=== PATIENT | female | born 1965 | race Caucasian/White ===

== ENCOUNTER → 2019-02-09 13:45 | Outpatient (CLI) | payer SELFPAY ==
--- NOTE | 2019-02-09 | FLU_PTH ---
PATIENT: ISABELLA LAL LOC: [facility] U#:[id number] AGE/SX: 59/F ROOM: RE02/09/[address]: Dr. Marlen Arana MD : 1965 BED: DIS: SPEC #: [id number] RECD: 02/12/19 12:02 STATUS: JOSE YAMIL #: [id number] ALESSANDRA: 02/09/19 00:[address]: Marlen Arana DEPT: CYTOLOGY RECD BY: Lamonte Tinajero ENTERED: 02/12/19 12:03 SP TYPE: Fluid OTHR DR: Dr. Jacob Edwards MD Tissues: A - Thyroid gland, NOS B - Thyroid gland, NOS C - Neck, NOS D - Neck, NOS Procedures: Special Stain Group II Surgery Specimen Level IV Cytospin Fluid HEADER OPERATION: Ultrasound-guided fine needle aspiration left thyroid, left neck mass PRE-OP DIAGNOSIS: Thyroid nodules, left neck mass TISSUE SUBMITTED: A - FNA left thyroid fluid for cytology, B - FNA left thyroid slides x8, C - FNA left neck mass fluid for cytology, D - FNA left neck mass slides x6 DIAGNOSIS CYTOLOGY A. Left thyroid nodule fluid, ultrasound-guided FNA (cytospin and cell block): Adequate for evaluation. Consistent with benign follicular nodule with cystic changes. B. Left thyroid nodule, ultrasound-guided FNA (smears): Adequate for evaluation. 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 C. Left neck mass fluid, ultrasound-guided FNA (cytospin and cell block): Benign salivary gland tissue. See comment. D. Left neck mass, ultrasound-guided FNA (smears): Benign salivary gland tissue and polymorphous lymphocytes. See comment. AM:yaya 02/15/19 COMMENT C & D. Differential diagnosis includes intraparotid lymph node tissue, Warthin tumor, pleomorphic adenoma and chronic inflammatory process. Excision of the lesion is suggested for definite diagnosis. Correlation with clinical, radiologic findings and appropriate follow up are necessary. Case has been reviewed in consultation with Dr. Mcmanus who concurs with the above diagnosis. IDC:[facility] CYTOLOGY STUDY Slides are reviewed. CYTOLOGY GROSS A - Received is 30 ml of brown cloudy fluid labeled with the patient's name and and designated per the requisition as left thyroid. Submitted for cytology preparation including cell block. B - Received are eight smears labeled with the patient's name and designated per the requisition as left thyroid. Submitted for staining. C - Received is 30 ml of brown cloudy fluid labeled with the patient's name and and designated per the requisition as left neck mass. Submitted for cytology preparation including cell block. D - Received are six smears labeled with the patient's name and designated per the requisition as left neck mass. Submitted for staining. / yaya 02/12/19 TC:5 CPT: 68854 x2, 17827 x2, 24520 x2
== END ==
PROVIDERS: Family Provider Family Medicine; PCP Family Medicine; Referring Provider Surgery; Visit Provider Surgery
DX: E04.1 Nontoxic single thyroid nodule (principal); R22.1 Localized swelling, mass and lump, neck
CPT/HCPCS: 88108; 88305; 88313

== ENCOUNTER 2023-02-15 23:15 | Emergency (ER) | payer MEDICARE, SELFPAY ==
--- NOTE | 2023-02-15 00:53 | RAD_ITS ---
EXAM: XR CHEST, 1 VIEW CLINICAL INDICATION: Cough TECHNIQUE: Frontal view of the chest. COMPARISON: No relevant prior studies available. FINDINGS: LUNGS AND PLEURAL SPACES: Patchy multilobar bilateral groundglass opacities are concerning for pneumonia in the appropriate setting. Atelectasis versus infiltrate/aspiration at the left lower lobe obscuring a portion of the left hemidiaphragm. No cardiomegaly or hilar enlargement. No effusion. No pneumothorax. HEART: See above. MEDIASTINUM: Central airways and mediastinal contour are unremarkable. BONES/JOINTS: S-shaped curvature of the spine. No acute fracture. No suspicious lytic or sclerotic lesions of bone. SOFT TISSUES: Unremarkable. VASCULATURE: Dense atherosclerotic calcifications of the nonenlarged thoracic aortic arch. RAD/Chest 1 View (Portable) IMPRESSION: Bilateral groundglass opacities are potentially infectious. Atelectasis versus infiltrate/aspiration at the left lower lobe. Electronically Signed: Shahid Frye MD at 1:48 EST ,
[2023-02-15 23:16] VITALS: BP 63/48; PULSE 133; RESP 18; TEMP 37.2; O2SAT 100
[2023-02-15 23:30] VITALS: BP 104/76; PULSE 129; RESP 19; O2SAT 93
[2023-02-15 23:31] VITALS: BMI 17.7
--- NOTE | 2023-02-15 23:46 | EX.ED.DYSGE1 ---
HPI History of Present Illness Chief Complaint: General Illness Informant: patient Onset/Context/Timing Onset: Days (3) Context: Gradual Onset Timing: Continuous Quality: Weakness Location: Generalized Worsened by: Nothing Relieved by: Nothing Narrative Narrative: Patient presents with generalized weakness and not feeling well over the past 3 days. Patient admits to subjective fevers and chills today. Patient admits to shortness of breath and cough. Patient denies any sputum production however. Patient denies any chest pain. Patient admits to some nausea but denies any vomiting. Patient denies any dysuria or hematuria but admits to some decreased urine output. The patient also admits to having a recent intramedullary soha placed in her left femur due to radiation from metastatic lung cancer. [facility] Medical History (Updated 02/16/23 @ 04:[address] 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 Lit Stubbs DO) History of thyroid surgery Hx of eye surgery S/P ORIF (open reduction internal fixation) fracture Social History Smoking Status: Former smoker ROS ROS ED Constitutional Constitutional ED: Reports chills, fever(s) and subjective Eyes Eyes: Reports change in vision; Denies blurry vision ENT ENT ED: Denies rhinorrhea or sore throat Cardiovascular Cardiovascular: Denies chest pain or palpitations Respiratory/Chest Respiratory/Chest: Reports cough and dyspnea Gastrointestinal Gastrointestinal: Reports nausea; Denies vomiting Genitourinary Genitourinary ED: Reports other Details: Decreased urine output ; Denies dysuria or hematuria Musculoskeletal Musculoskeletal: Reports back pain; Denies neck pain Integumentary Reports rash; Denies abscess Neurologic Neurologic: Denies headache(s) or weakness Allergic/Immunologic Allergic/Immunologic ED: Denies mouth swelling or urticaria EXAM Physical Exam Const Vital Signs: 02/15/23 23:16 02/15/23 23:30 02/15/23 23:32 Temperature 98.9 F Temperature Source Temporal Pulse Rate 133 H 129 H Respiratory Rate 18 19 H Respiratory Effort Normal Non-Labored Respiratory Pattern Normal Blood Pressure 63/48 L 104/76 Blood Pressure Mean 53 85 Pulse Ox 100 93 Oxygen Delivery Method Room Air 02/16/23 00:00 02/16/23 01:20 02/16/23 02:00 Temperature Temperature Source Pulse Rate 105 H Respiratory Rate 17 Respiratory Effort Respiratory Pattern Blood Pressure 82/57 L 101/74 Blood Pressure Mean 65 83 Pulse Ox 93 96 Oxygen Delivery Method Room Air Room Air 02/16/23 02:15 02/16/23 03:00 02/16/23 04:00 Temperature 98 F Temperature Source Oral Pulse Rate 107 H 109 H 106 H Respiratory Rate 20 H 19 H 18 Respiratory Effort Respiratory Pattern Blood Pressure 99/74 117/75 108/74 Blood Pressure Mean 82 89 85 Pulse Ox 100 97 96 Oxygen Delivery Method Room Air Room Air 02/16/23 05:00 02/16/23 05:15 Temperature Temperature Source Pulse Rate 111 H Respiratory Rate 16 Respiratory Effort Respiratory Pattern Blood Pressure 103/74 103/74 Blood Pressure Mean 83 83 Pulse Ox 98 Oxygen Delivery Method General Appearance ED: NAD HEENT Reports moist mucous membranes Neck supple and no JVD Resp normal respiratory effort and clear to auscultation bilaterally Cardio regular rhythm Rate: tachycardic GI non-tender and non-distended Palpation: soft Extremity General Extremety ED: Negative for edema or tenderness General Extremity: Negative for edema Neuro oriented x3, CN's II-XII intact bilaterally and no sensory deficits noted Sensorium / Orientation: alert Motor Exam: strength 5/5 throughout Skin Skin Narrative: There is a excoriated rash of the anterior left thigh. There is no bleeding noted. There are no petechia noted. There are no vesicles or pustules noted. There is no involvement of the mucous membranes. There is no involvement of the palms or soles. MDM MDM MDM Narrative Medical decision making narrative: Differential diagnosis includes pulmonary embolism, pneumonia, dehydration, electrolyte abnormality, acute kidney injury, cardiac dysrhythmia, cardiac ischemia, urinary tract infection, sepsis, neutropenia, and viral illness. CBC will be obtained to assess for neutropenia, leukocytosis and anemia. Basic metabolic profile will be obtained to assess for electrolyte abnormality and renal function. Urinalysis will be obtained to assess for urinary tract infection. Serum lactate will be obtained to assess for sepsis. Chest x-ray will be obtained to assess for pneumonia. D-dimer will be obtained to assess for pulmonary embolism. EKG will be obtained to assess for cardiac dysrhythmia and cardiac ischemia. High-sensitivity troponin will be obtained to assess for cardiac ischemia. Blood cultures will be obtained to assess for sepsis. Urine culture will be obtained to assess for urinary tract infection. Lab Data Attestation: I reviewed the patient's lab results. Lab results narrative: CBC was reviewed. White blood cell count was low at 2.3. Hemoglobin was 8.1 and hematocrit was 26.4. Platelets were low at 71. Absolute neutrophil count was slightly low at 1.6. There are 3% immature granulocytes. PT was INR and PTT were reviewed and were within normal limits. Comprehensive metabolic profile was reviewed. Sodium was low at 129. The remainder was within normal limits. Lactate was reviewed and was normal at 1.0. High-sensitivity troponin was reviewed and was normal at 16. Urinalysis was reviewed. There is no evidence of urinary tract infection or hematuria. COVID-19 rapid antigen was reviewed and was negative. Influenza A and influenza B antigens were reviewed and were negative. Labs: Laboratory Results - last 24 hr 02/16/23 02/16/23 00:14 00:45 WBC 2.3 L RBC 3.10 L Hgb 8.1 L Hct 26.4 L MCV 85.2 MCH 26.1 L MCHC 30.7 L RDW Std Deviation 88.0 H RDW Coeff of Gee 29.9 H Plt Count 71 L MPV TNP Immature Gran % (Auto) 3.000 H Neut % (Auto) 70.9 H Lymph % (Auto) 16.5 L [place] % (Auto) 7.4 Eos % (Auto) 1.3 Baso % (Auto) 0.9 Absolute Neuts (auto) 1.6 L Absolute Lymphs (auto) 0.38 L Nucleated RBC % 0 Differential Comment SCANNED Diff Path Review May foll Atypical Lymphocytes 1+ Platelet Estimate SLT DEC Anisocytosis 3+ PT 14.0 INR 1.1 APTT 30.9 D-Dimer Quant (PE/DVT) 3.01 H* Sodium 129 L Potassium 4.1 Chloride 98 Carbon Dioxide 24.0 Anion Gap 7 BUN 11 Creatinine 0.63 Estim Creat Clear Calc 75.74 Est GFR (MDRD) Af Amer 125 Est GFR (MDRD) Non-Af 103 BUN/Creatinine Ratio 17.6 Glucose 123 H Lactic Acid 1.0 Calcium 8.8 Total Bilirubin 0.50 AST 20 ALT 20 Alkaline Phosphatase 103 Troponin I High Sens 16 Total Protein 7.4 Albumin 2.9 L Globulin 4.5 H Albumin/Globulin Ratio 0.6 L Urine Color Yellow Urine Clarity Clear Urine pH 7.0 Ur Specific [place] 1.005 Urine Protein Negative Urine Glucose (UA) Normal Urine Ketones Negative Urine Occult Blood Negative Urine Nitrite Negative Urine Bilirubin Negative Urine Urobilinogen Normal Ur Leukocyte Esterase Negative Urine RBC 0 SEEN Urine WBC 0 SEEN Ur Squamous Epith Cells 0 SEEN Urine Bacteria 0 SEEN Urine Mucus 0 SEEN Radiography Chest X-Ray - ED: 1 View, Read by ED Physician, Read by Radiologist and Chronic Changes CTA PE Study: No Evidence of PE and No Evidence of Dissection Diagnostic Testing: Clinical Impression(s) from Imaging Studies Chest X-Ray 02/15/23 00:53 IMPRESSION: Bilateral groundglass opacities are potentially infectious. Atelectasis versus infiltrate/aspiration at the left lower lobe. Electronically Signed: Shahid Frye MD at 1:48 EST , Chest CTA 02/16/23 02:22 IMPRESSION: 1. Too numerous to count pulmonary nodules bilaterally either representing infectious process or metastasis. 2. No consolidating pneumonia. 3. Indeterminate liver lesion suspected anteriorly. Recommend further investigation with liver MRI. 4. Enlarged multinodular thyroid lobe. Consider further investigation with dedicated thyroid ultrasound. Electronically Signed: Shahid Frye MD at 4:11 EST , Portable 1 view chest x-ray was obtained. On my independent interpretation, lung pierson show chronic changes and bilateral groundglass opacities. There is also atelectasis versus infiltrate in the left lower lobe. There is normal cardiac silhouette. Bony thorax is normal. Radiologist also interpreted the x-ray and agrees. Because of the elevated D-dimer, CTA of the chest was obtained. There is no evidence of pulmonary embolism or aortic dissection. There are multiple pulmonary nodules that are likely metastatic disease. This was interpreted by the radiologist and was also independently reviewed by myself. EKG Initial EKG: Attestation: I personally reviewed and interpreted this EKG as follows: Interpretation: Sinus Tachycardia (119) and Non-Specific ST Changes Comments: EKG was obtained. On my independent interpretation, shows sinus tachycardia with a rate of 119. MI interval was normal at 144 ms. QRS interval is normal at 84 ms. QTc interval was normal at 458 ms. [place] was normal at 76. There are nonspecific ST-T wave changes noted. There is left ventricular hypertrophy noted. Prior EKG tracings: not available for review Prior: No Prior Treatment and Re-Evaluation :: Patient was given IV fluids. Patient's blood pressure and heart rate improved. Patient was started on Zosyn and vancomycin initially. Since the patient is afebrile and there is no definite source of infection, I do not feel the patient requires admission to the hospital for IV antibiotics. Patient wants to go home. Patient was advised of her findings. Patient was instructed to follow-up with her primary care physician and oncologist as scheduled. Patient understood and was agreeable with the plan. All questions were answered. Discharge Plan Triage Chief Complaint: General Illness ED Provider: Lit Stubbs Dx/Rx/DC Orders Clinical Impression: Dyspnea, Lung cancer Instructions: ED Dyspnea Prescriptions: No Action sertraline [Zoloft] 25 MG tablet 25 mg PO DAILY prednisolone acetate 1 DROP drops,suspension 1 drp Each Eye BID Primary Care Provider: Jacob Edwards Referrals: Yunior Issa DO [Med Staff - Active Staff] - 3-5 Days Jacob Edwards MD [Primary Care Provider] - 3-5 Days Disposition Disposition: Home, Self Care Discharge Date/Time: 02/16/23 05:15
--- NOTE | 2023-02-15 23:55 | EKG12_ITS ---
Test Reason : GEN ILLNESS Blood Pressure : / mmHG Vent. Rate : 119 BPM Atrial Rate : 119 BPM P-R Int : 144 ms QRS Dur : 084 ms QT Int : 326 ms P-R-T Axes : 068 076 089 degrees QTc Int : 458 ms Sinus tachycardia Left ventricular hypertrophy with repolarization abnormality ( S[place]olow-[place] ) Abnormal ECG Confirmed by JEREMIAS CABAN, MAYRA ([id number]), videotape editor TOM BURNETT ([id number]) on 02/22/2023 8:22:34 AM Referred By: Confirmed By:MAYRA MCDOWELL MD
[2023-02-16] VITALS (8 sets, daily range): BP systolic 82–117; BP diastolic 57–75; PULSE 105–111; RESP 16–20; TEMP 36.6; O2SAT 93–100
[2023-02-16 00:29] LABS: Absolute Lymphocyte Count 0.38 X10^3/uL (0.83-4.51); Absolute Neutrophil Count 1.6 X10^3/uL (2.0-7.7); Basophil# 0.02 X10^3/uL; Basophil% 0.9 % (0-1); Eosinophil# 0.03 X10^3/uL; Eosinophils% 1.3 % (0-5); Hematocrit 26.4 % (37-47); Hemoglobin 8.1 g/dL (12.0-15.0); Lymphocyte # 0.38 X10^3/ul (0.83-4.51); Lymphocyte % 16.5 % (19-41); Mean Corp Hgb Conc 30.7 g/dL (32-36); Mean Corpuscular Hgb 26.1 pg (27.0-32.0); Mean Corpuscular Volume 85.2 fL (81-99); Monocyte# 0.17 X10^3/uL; Monocyte% 7.4 % (0-10); NRBC Flagged by Analyzer 0 % (0-5); Neutrophil # 1.63 X10^3/uL (2.7-7.7); Neutrophil % 70.9 % (47-70); POSITIVE COUNT YES; POSITIVE DIFFERENTIAL YES; POSITIVE MORPHOLOGY YES; Platelet Count 71 K/mm3 (150-450); RBC Distribution Width CV 29.9 % (11.6-14.6); White Blood Count 2.3 K/mm3 (4.4-11.0)
[2023-02-16 00:36] LABS: Differential Indicated SCAN CRITERIA MET
[2023-02-16 00:45] LABS: ALB/GLOB Ratio 0.6 RATIO (0.9-2.4); AST(SGOT) 20 U/L (15-37); Alanine Aminotransfer ALT/SGPT 20 U/L (13-56); Albumin, Serum 2.9 g/dL (3.2-5.0); Alkaline Phosphatase 103 U/L (45-117); Anion Gap 7 (5-15); BUN 11 mg/dL (7-18); BUN/Creat Ratio 17.6 RATIO (10-20); Calcium,Total 8.8 mg/dL (8.5-10.1); Chloride 98 mmol/L (98-107); Creatinine, Serum 0.63 mg/dL (0.55-1.02); EST Glomerular Filtration Rate 103 mL/min (>60); Est Glom Filt Rate - Afr Amer 125 mL/min (>60); Estimated Creatinine Clearance 75.74 ml/min; Globulin 4.5 g/dL (2.2-4.2); Glucose 123 mg/dL (74-106); Potassium 4.1 mmol/L (3.5-5.1); Protein, Total 7.4 g/dL (6.4-8.2); Sodium Level 129 mmol/L (136-145); Troponin-I HS 16 pg/mL (3.0-54.0)
[2023-02-16 00:54] LABS: Bacteria 0 SEEN /hpf (None Seen); Mucous, Urine 0 SEEN /hpf (<or=2+); Red Blood Cells-Urine 0 SEEN /hpf (0-5); Squamous Epithelial Cells - UA 0 SEEN /hpf (5-10); White Blood Cells 0 SEEN /hpf (0-5)
[2023-02-16 00:55] LABS: Color, Urine Yellow (Yellow); Glucose, Dipstick Normal (Normal); Ketone-Dipstick Negative (Negative); Leukocyte Esterase-Dipstick Negative /ul (Negative); Nitrite-Dipstick Negative (Negative); Occult Blood-Urine Negative /ul (Negative); Protein-Dipstick Negative (Negative); Specific Gravity, Urine 1.005 (1.002-1.030); Urine Bilirubin Dipstick Negative (Negative); Urine Clarity Clear (Clear); Urine Urobilinogen Normal (Normal)
[2023-02-16 01:04] LABS: International Normalized Ratio 1.1
[2023-02-16] MEDS: 0.9% Normal Saline (1000mL) 1,000 ML 999 ML IV (01:06)
[2023-02-16 01:07] LABS: Partial Thromboplast Time 30.9 Seconds (24.1-36.2)
[2023-02-16 01:17] LABS: Anisocytosis 3+; Atypical Lymphocyte 1+ %; Differential Comment SCANNED; Platelet Estimate SLT DEC (ADEQ)
[2023-02-16] MEDS: Piperacil/Tazobactam 4.5 GM in 0.9% Normal Saline (100mL MB+) 100 ML IV (02:11)
[2023-02-16 02:12] LABS: D-Dimer Quantitative (DVT/PE) 3.01 FEU/ug/m (0.27-0.49)
--- NOTE | 2023-02-16 02:22 | CT_ITS ---
EXAM: CT ANGIOGRAPHY CHEST WITHOUT AND WITH INTRAVENOUS CONTRAST CLINICAL INDICATION: Elevated D-dimer TECHNIQUE: Helically acquired angiography images were obtained of the chest without and with intravenous contrast. CTDIvol = ( 14.30 ) mGy, DLP = ( 252.00 ) mGycm This CT exam was performed using one or more of the following dose reduction techniques: automated exposure control, adjustment of the mA and/or kV according to patient size, and/or use of iterative reconstruction technique. MIP reconstructed images were created and reviewed. CONTRAST: IV 75mL [id number] COMPARISON: No relevant prior studies available. FINDINGS: PULMONARY ARTERIES: Unremarkable. Normal in caliber. No evidence of pulmonary embolism. No PE. AORTA: See below. GREAT VESSELS OF AORTIC ARCH: Unremarkable. Normal in caliber. No evidence of dissection. LUNGS AND PLEURAL SPACES: Bilateral too numerous to count pulmonary nodules. Consider infectious process versus extensive metastatic disease. Partial atelectasis suspected involving the posterior medial aspect of the left upper lobe. No pleural effusions or pneumothorax. Heterogeneous enlarged multinodular left thyroid lobe. Suggest further investigation with ultrasound. HEART: Moderate pericardial effusion . Heart size is normal. No significant coronary artery calcifications. MEDIASTINUM: Unremarkable. No mediastinal or hilar adenopathy. Esophagus is unremarkable. No hiatal hernia. THYROID: Unremarkable. No thyroid lesions. BONES/JOINTS: Unremarkable. No suspicious lytic or blastic abnormality. LYMPH NODES: Incomplete imaged retroperitoneal adenopathy at the upper abdomen, particularly at the left para-aortic region. LIVER: Additional ill-defined low-density liver lesion suspected to be present at the anterior segment of the right hepatic lobe measuring 3.8 x 2.6 cm. Small hepatic cyst centrally. Opacification involving the right maxillary sinus, incompletely imaged on this study. CT/CTA Chest W/WO Contrast IMPRESSION: 1. Too numerous to count pulmonary nodules bilaterally either representing infectious process or metastasis. 2. No consolidating pneumonia. 3. Indeterminate liver lesion suspected anteriorly. Recommend further investigation with liver MRI. 4. Enlarged multinodular thyroid lobe. Consider further investigation with dedicated thyroid ultrasound. Electronically Signed: Shahid Frye MD at 4:11 EST ,
[2023-02-16] MEDS: 0.9% Normal Saline (1000mL) 1,000 ML 1000 ML IV (03:19)
[2023-02-16] MEDS: Vancomycin HCl 1,250 MG in 0.9% Normal Saline (250mL Bag) 250 ML 167 MG IV (03:19)
[2023-02-16] MEDS: HYDROmorphone 1 MG/ML Syringe 0.5 MG IV (03:21)
[2023-02-17 12:56] LABS: Pathologist Review Reviewed
== END 2023-02-16 05:15 | disposition home or self-care (01) ==
PROVIDERS: Emergency Provider Emergency Medicine; PCP Family Medicine; Visit Provider Emergency Medicine
DX: R06.00 Dyspnea, unspecified (principal); C34.90 Malignant neoplasm of unspecified part of unspecified bronchus or lung; Z87.891 Personal history of nicotine dependence
CPT/HCPCS: 36415; 71045; 71275; 80053; 81001; 83605; 84484; 85025; 85379; 85610; 85730; 87040; 87086; 87428; 93005; 96365; 96366; 96367; 96375; 99283; J7030; J7050; Q9967; A4216

== ENCOUNTER 2023-07-24 09:45 | Inpatient (IN) | payer MEDICARE, SELFPAY ==
[2023-07-24] VITALS (7 sets, daily range): BP systolic 78–139; BP diastolic 52–96; PULSE 59–111; RESP 14–23; TEMP 35.8–36.9; O2SAT 93–100; BMI 17.4; BMI 18.2
--- NOTE | 2023-07-24 11:40 | CT_ITS ---
HISTORY: fall. TECHNIQUE: Helically acquired images were obtained of the cervical spine without contrast. 2D reformatted images were reviewed. A radiation dose optimization technique was used for this scan. 462 images. COMPARISON: CTA chest 02/16/2023. FINDINGS: VERTEBRAE: Vertebral body heights maintained. No acute fracture identified. Heterogeneous osteopenia noted. ALIGNMENT: No significant anterior or posterior subluxation. Preservation of the cervical lordosis. INTERVERTEBRAL DISCS: Mild degenerative endplate changes without critical central canal stenosis. SOFT TISSUES: No prevertebral soft tissue swelling. Heterogeneous multinodular left thyroid again seen. Numerous irregular pulmonary nodules measuring up to 11 mm in the left apex. Incompletely imaged left posterior mediastinal/upper lobe mass. CT/Spine Cervical without Contras IMPRESSION: No evidence for acute fracture or dislocation in the cervical spine. Mild degenerative change. Increased size of multiple pulmonary nodules with increased size of incompletely imaged left upper lobe/posterior mediastinal mass, concerning for malignancy and metastases Electronically Signed: Melissa Hua MD at 13:04 EDT ,
--- NOTE | 2023-07-24 11:40 | CT_ITS ---
HISTORY: fall. TECHNIQUE: Multiple axial images were obtained of the head without intravenous contrast. A radiation dose optimization technique was used for this scan. 250 images. COMPARISON: 05/09/2012. FINDINGS: BRAIN PARENCHYMA: Multiple foci and zones of low attenuation in the bilateral cerebral white matter compatible with chronic small vessel ischemic gliosis. No acute intra-axial hemorrhage identified. CSF SPACES: Mild volume loss with a cavum septum pellucidum noted. No midline shift or other significant mass effect. No acute extra-axial hemorrhage seen. OTHER: Intact calvarium. Left scalp and facial contusion. Mild right maxillary sinus mucosal thickening. Chronic atelectasis of the left maxillary sinus. Surgical clips in the left parotid bed. Bilateral lens resections. CT/Brain/Head without Contrast IMPRESSION: No acute intracranial process identified. Chronic involutional and white matter changes. Electronically Signed: Melissa Hua MD at 12:58 EDT ,
--- NOTE | 2023-07-24 11:40 | EKG12_ITS ---
Test Reason : FALL Blood Pressure : / mmHG Vent. Rate : 098 BPM Atrial Rate : 098 BPM P-R Int : 136 ms QRS Dur : 086 ms QT Int : 386 ms P-R-T Axes : 068 082 102 degrees QTc Int : 492 ms Normal sinus rhythm Left ventricular hypertrophy with repolarization abnormality ( [place]hilt-Black ) Abnormal ECG Confirmed by Jani Carroll ([id number]), editor map TOM BURNETT ([id number]) on 07/25/2023 8:25:22 AM Referred By: Confirmed By:Jani Carroll
--- NOTE | 2023-07-24 11:41 | EDS_ITS ---
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 Patient lives at home with her boyfriend, she does have [id number]-[id number] care. Patient had a mechanical fall around 2 AM last evening. Patient does walk with a walker. Patient did take extra pain medicine as well as clonazepam, patient does fall asleep and was more difficult to arouse this morning. Patient does have abrasions, ecchymosis to the left side of her head and they are concerned because the patient is on Eliquis. Patient is here with her brother as well as her boyfriend. Patient is currently receiving clinical trial treatment at [facility] <JOHN Schaeffer - Last Filed: 07/24/23 13:56> [facility] Medical History (Updated 07/24/23 @ 13:56 by JOHN Schaeffer) DVT (deep venous thrombosis) Stage 4 lung cancer Cancer of femur Home Medications ?Medication ?Instructions ?Recorded ?Last Taken ?Type sertraline 25 mg tablet (Zoloft) 25 mg PO DAILY depression 09/08/16 09/21/16 History prednisolone acetate 1 % eye 1 drp BID steroid eye drops 09/21/16 09/21/16 History drops,suspension apixaban 2.5 mg tablet (Eliquis) 2.5 mg PO BID 07/24/23 Unknown History budesonide 160 mcg-glycopyr 9 inh inhalation 07/24/23 Unknown History mcg-formot 4.8 mcg/actuation HFA inhaler (Breztri Aerosphere) furosemide 20 mg tablet 20 mg PO DAILY 07/24/23 Unknown History morphine 15 mg tablet,extended 15 mg PO BID 07/24/23 Unknown History release oxybutynin chloride 5 mg tablet 5 mg PO QHS PRN 07/24/23 Unknown History oxycodone 10 mg tablet 10 mg PO Q4H PRN PRN pain 07/24/23 Unknown History pyridoxine (vitamin B6) 100 mg 100 mg PO DAILY 07/24/23 Unknown History tablet ropinirole 0.25 mg tablet 0.25 mg PO QHS 07/24/23 Unknown History sodium chloride 1,000 mg soluble 1,000 mg BID 07/24/23 Unknown History tablet Allergy/AdvReac Type Severity Reaction Status Date / Time No Known Allergies Allergy Verified 07/24/23 10:01 Surgical History History of thyroid surgery Hx of eye surgery S/P ORIF (open reduction internal fixation) fracture Social History Smoking Status: Former smoker ROS <JOHN Schaeffer - Last Filed: 07/24/23 13:56> ROS ED ROS Narrative Constitutional: Negative for fever, chills, weight loss. Positive for chronic weakness Eyes: Negative for vision loss, vision change, double vision ENT: Negative for any sore throat, ear pain, congestion Cardiovascular: Negative for any chest pain, tightness, palpitations Respiratory: Negative for any cough, sputum production, hemoptysis, dyspnea, dyspnea on exertion, orthopnea Gastrointestinal: Negative for any abdominal pain, nausea, vomiting, diarrhea, constipation, blood in stool, blood in vomit : Negative for any urinary frequency, dysuria, retention, blood in urine Muscle skeletal: Negative for any neck pain, back pain Neurological: Negative for any headache, syncope, dizziness Skin: Negative for any rashes, itching, lacerations. Positive for abrasions to the left side of her head, face Psychiatric: Negative for any depression, anxiety, stress, suicidal ideation, homicidal ideation Hematologic: Negative for any excessive bruising, easy bleeding EXAM <JOHN Schaeffer - Last Filed: 07/24/23 13:56> Physical Exam Narrative Exam Narrative: Vital signs reviewed. Patient is alert, patient in the middle of questioning and examination does fall asleep. Per the family, when she does take her clonazepam and pain medicine this is how she acts. I did speak with the patient's brother, there is a DNR however they are unsure what CCA or [employer]. Patient did let me know that she does not want to stay in the hospital. Patient is cachectic appearing however appears alert and oriented. She is unsure why she fell however. HEET: Head normocephalic atraumatic, TMs clear bilaterally. Posterior pharynx is clear, dry mucous membranes. Nares clear bilaterally. Patient does have some ecchymosis, abrasions to the left side of her parietal area no significant laceration or swelling. Neck: Supple with no lymphadenopathy or tenderness. No signs of meningismus. Cardiac: Regular rate and rhythm positive systolic murmur, no gallops or rubs, equal peripheral pulses bilaterally. Respiratory: Lung sounds diminished in the bases.. No chest tenderness. Abdomen: Soft, nontender, nondistended. No abdominal bruit or pulsatile masses. No hepatosplenomegaly Extremities: No peripheral edema, no signs of gross trauma or deformity. Active full range of motion of all extremities. No evidence of any pelvic or hip injury Neuro: Cranial nerves II through XII intact, no focal neurological deficits. Skin: Clean dry and intact with no rash, purpura, petechiae, vesicles or pustules. Backs/flank: No CVA tenderness, no midline spinal tenderness, no deformity. Psych: Normal mood and affect. No SI, HI or acute psychosis. Const Vital Signs: 07/24/23 09:57 07/24/23 10:07/24/23 11:46 Temperature 96.5 F L Temperature Source Temporal Pulse Rate 100 97 Respiratory Rate 14 22 H Respiratory Effort Normal Non-Labored Respiratory Pattern Normal Blood Pressure 78/52 L 91/57 L Blood Pressure Mean 60 68 Pulse Ox 100 94 Oxygen Delivery Method Room Air Room Air Room Air 07/24/23 13:00 Temperature Temperature Source Pulse Rate 98 Respiratory Rate 23 H Respiratory Effort Respiratory Pattern Blood Pressure 98/72 Blood Pressure Mean 81 Pulse Ox 99 Oxygen Delivery Method Positive cachectic General Appearance ED: cachectic Nutritional Appearance: cachectic <Olivier Reid MD - Last Filed: 07/24/23 15:12> Physical Exam Const Vital Signs: 07/24/23 09:57 07/24/23 10:02 07/24/23 11:46 Temperature 96.5 F L Temperature Source Temporal Pulse Rate 100 97 Respiratory Rate 14 22 H Respiratory Effort Normal Non-Labored Respiratory Pattern Normal Blood Pressure 78/52 L 91/57 L Blood Pressure Mean 60 68 Pulse Ox 100 94 Oxygen Delivery Method Room Air Room Air Room Air 07/24/23 13:00 Temperature Temperature Source Pulse Rate 98 Respiratory Rate 23 H Respiratory Effort Respiratory Pattern Blood Pressure 98/72 Blood Pressure Mean 81 Pulse Ox 99 Oxygen Delivery Method [facility] <JOHN Schaeffer - Last Filed: 07/24/23 13:56> [facility] Lab Data Labs: Laboratory Results - last 24 hr 07/24/23 07/24/23 07/24/23 12:05 12:30 14:15 WBC 24.1 H RBC 3.52 L Hgb 8.7 L Hct 29.7 L MCV 84.4 MCH 24.7 L MCHC 29.3 L RDW Std Deviation 56.7 H RDW Coeff of Gee 18.5 H Plt Count 442 MPV 9.6 Immature Gran % (Auto) 0.700 Neut % (Auto) 87.0 H Lymph % (Auto) 5.6 L Miner % (Auto) 5.4 Eos % (Auto) 1.0 Baso % (Auto) 0.3 Absolute Neuts (auto) 21.0 H Absolute Lymphs (auto) 1.35 Nucleated RBC % 0 Differential Comment SCANNED Sodium 131 L Potassium 3.9 Chloride 98 Carbon Dioxide 22.0 Anion Gap 11 BUN 12 Creatinine 0.53 L Estim Creat Clear Calc 88.39 Est GFR (MDRD) Af Amer 150 Est GFR (MDRD) Non-Af 124 BUN/Creatinine Ratio 22.5 H Glucose 93 Lactic Acid 1.2 Calcium 10.3 H Total Bilirubin 0.60 AST 44 H ALT 23 Alkaline Phosphatase 159 H Total Protein 6.1 L Albumin 1.7 L Globulin 4.4 H Albumin/Globulin Ratio 0.4 L Urine Color Yellow Urine Clarity Sl. Cloudy Urine pH 6.5 Ur Specific Hooven 1.020 Urine Protein 100 H Urine Glucose (UA) Normal Urine Ketones Negative Urine Occult Blood 250 H Urine Nitrite Negative Urine Bilirubin Negative Urine Urobilinogen Normal Ur Leukocyte Esterase 500 H Urine RBC 10-25 SEEN Urine WBC 10-25 SEEN Ur Squamous Epith Cells 0 SEEN Urine Bacteria 1+ Urine Mucus 0 SEEN Radiography Diagnostic Testing: Clinical Impression(s) from Imaging Studies Brain CT 07/24/23 11:40 IMPRESSION: No acute intracranial process identified. Chronic involutional and white matter changes. Electronically Signed: Melissa Hua MD at 12:58 EDT , Cervical Spine CT 07/24/23 11:40 IMPRESSION: No evidence for acute fracture or dislocation in the cervical spine. Mild degenerative change. Increased size of multiple pulmonary nodules with increased size of incompletely imaged left upper lobe/posterior mediastinal mass, concerning for malignancy and metastases Electronically Signed: Melissa Hua MD at 13:04 EDT , Chest X-Ray 07/24/23 11:41 IMPRESSION: Mild left pleural effusion with left basilar consolidation, concerning for pneumonia. Increased size of mass or pneumonia in the left suprahilar lung. Bilateral pulmonary nodules and interstitial opacities again seen. Electronically Signed: Melissa Hua MD at 13:07 EDT , EKG EKG shows normal sinus rhythm, rate of 98: Attestation: I personally reviewed and interpreted this EKG as follows: Comments: Normal sinus rhythm, rate 98 bpm, CO interval 136 ms, QRS duration 86 ms, no acute ST elevation, no acute infarct noted. Treatment and Re-Evaluation :: Differential diagnosis includes however is not limited to: Electrolyte abnormality, closed head injury, concussion, skull fracture, intracranial bleeding, cervical fracture, UTI, worsening metastatic cancer. Patient is somnolent, she does wake up to verbal stimuli, patient is hypotensive however per the family, she is normally around elevated 70s to 80s on the systolic number. My repeat evaluation she was 91/50. Patient is dry appearing. She is cachectic appearing. Patient does have the abrasions to her left side of her face. She will receive a CT scan of the brain, cervical spine, chest x- ray. She will receive some basic laboratory values as well as a urinalysis, per the boyfriend, the patient's been urinating more frequently. Patient gets most of her care done at [facility] She will receive 1 L normal saline. All radiologic examinations were read, reviewed by the emergency department attending. From these reads, a plan of care will be put in place. Patient's blood pressure remained stable. Patient's laboratory values showed a leukocytosis with a white blood count 24.1, hemoglobin 8.7. Spoke with the patient's significant other as well as the POA, patient is noted to have eleva prieto white blood cell count, they state the last 1 they remember was 18, patient's hemoglobin maintains an 8. Chemistries show slight hyponatremia with a sodium 131, creatinine low at 0.53. Patient alkaline phos, slight elevated 159, AST 44, this is likely unremarkable. Albumin is low at 1.7. Currently waiting on CT scans of the brain as well as chest x-ray, urinalysis is also going to be obtained via Woodruff catheter. CT scan of the brain and cervical spine were unremarkable. Patient's urinalysis was positive for infection with 1+ bacteria 10-25 white blood cells, 10-25 red blood cells, 500 leukocytes. Patient's chest x-ray shows increased size of mass or pneumonia in the left superior lung. Bilateral pulmonary nodules and interstitial opacities again seen. At this time, patient be given Zithromax, Rocephin. Patient will need to be admitted to the hospital, I spoke with the patient as well as the patient's family, they are having difficulty caring for the patient at home. They would like to talk about further care possible options such as hospice. I spoke with hospitalist, they are agreement. Patient stable for admission. <Olivier Reid MD - Last Filed: 07/24/23 15:12> [facility] Narrative Medical decision making narrative: Dr. Reid: I have personally performed a face to face assessment of the patient and have reviewed the KAMRAN Note. I performed a substantive portion of the visit including all aspects of the following. My benson findings include: History is recent hospitalization at [facility] for infection of unknown source. History of carcinoma. Patient presents because of fall yesterday evening according to the brother. On anticoagulation. Reportedly hit head. Exam is afebrile. Vital signs noted. Patient has baseline low blood pressure in the 70s. Nontoxic-appearing. Regular rate and rhythm. Lungs clear to auscultation bilaterally. Abdomen soft nontender. Medical Decision Making: Check labs. Check chest x-ray. Chest x-ray in 1 view interpreted by myself independently does show consolidation and pleural effusion in the left lower lobe concerning for pneumonia especially when compared to previous chest x-ray. Check UA. Check labs. IV antibiotics. Admit. Other additions or changes: [None] History & Record Review Discussion w/independent historian: Patient and Family Lab Data Attestation: I reviewed the patient's lab results. Labs: Laboratory Results - last 24 hr 07/24/23 07/24/23 07/24/23 12:05 12:30 14:15 WBC 24.1 H RBC 3.52 L Hgb 8.7 L Hct 29.7 L MCV 84.4 MCH 24.7 L MCHC 29.3 L RDW Std Deviation 56.7 H RDW Coeff of Gee 18.5 H Plt Count 442 MPV 9.6 Immature Gran % (Auto) 0.700 Neut % (Auto) 87.0 H Lymph % (Auto) 5.6 L Miner % (Auto) 5.4 Eos % (Auto) 1.0 Baso % (Auto) 0.3 Absolute Neuts (auto) 21.0 H Absolute Lymphs (auto) 1.35 Nucleated RBC % 0 Differential Comment SCANNED Sodium 131 L Potassium 3.9 Chloride 98 Carbon Dioxide 22.0 Anion Gap 11 BUN 12 Creatinine 0.53 L Estim Creat Clear Calc 88.39 Est GFR (MDRD) Af Amer 150 Est GFR (MDRD) Non-Af 124 BUN/Creatinine Ratio 22.5 H Glucose 93 Lactic Acid 1.2 Calcium 10.3 H Total Bilirubin 0.60 AST 44 H ALT 23 Alkaline Phosphatase 159 H Total Protein 6.1 L Albumin 1.7 L Globulin 4.4 H Albumin/Globulin Ratio 0.4 L Urine Color Yellow Urine Clarity Sl. Cloudy Urine pH 6.5 Ur Specific Hooven 1.020 Urine Protein 100 H Urine Glucose (UA) Normal Urine Ketones Negative Urine Occult Blood 250 H Urine Nitrite Negative Urine Bilirubin Negative Urine Urobilinogen Normal Ur Leukocyte Esterase 500 H Urine RBC 10-25 SEEN Urine WBC 10-25 SEEN Ur Squamous Epith Cells 0 SEEN Urine Bacteria 1+ Urine Mucus 0 SEEN Radiography Chest X-Ray - ED: 1 View and Read by ED Physician Diagnostic Testing: Clinical Impression(s) from Imaging Studies Brain CT 07/24/23 11:40 IMPRESSION: No acute intracranial process identified. Chronic involutional and white matter changes. Electronically Signed: Melissa Hua MD at 12:58 EDT , Cervical Spine CT 07/24/23 11:40 IMPRESSION: No evidence for acute fracture or dislocation in the cervical spine. Mild degenerative change. Increased size of multiple pulmonary nodules with increased size of incompletely imaged left upper lobe/posterior mediastinal mass, concerning for malignancy and metastases Electronically Signed: Melissa Hua MD at 13:04 EDT , Chest X-Ray 07/24/23 11:41 IMPRESSION: Mild left pleural effusion with left basilar consolidation, concerning for pneumonia. Increased size of mass or pneumonia in the left suprahilar lung. Bilateral pulmonary nodules and interstitial opacities again seen. Electronically Signed: Melissa Hua MD at 13:07 EDT , Discharge Plan Dx/Rx/DC Orders Clinical Impression: Malignant neoplasm metastatic to left lung, Community acquired pneumonia, UTI (urinary tract infection), Falls, Head injury, Adult failure to thrive Disposition Disposition: Acute Care [facility]
--- NOTE | 2023-07-24 11:41 | RAD_ITS ---
HISTORY: cough. TECHNIQUE: XR Chest 1 View. COMPARISON: 02/16/2023. FINDINGS: CARDIOMEDIASTINAL BORDERS: Cardiac silhouette within normal limits in size. Mediastinal contour also unchanged with calcification of the aorta. LUNGS: Mixed nodular and interstitial opacities of the bilateral lungs. Left retrocardiac consolidation. Increased left upper lobe suprahilar opacity PLEURA: Mild left pleural effusion. OSSEOUS STRUCTURES: Chronic ossification above the right clavicle. RAD/Chest 1 View (Portable) IMPRESSION: Mild left pleural effusion with left basilar consolidation, concerning for pneumonia. Increased size of mass or pneumonia in the left suprahilar lung. Bilateral pulmonary nodules and interstitial opacities again seen. Electronically Signed: Melissa Hua MD at 13:07 EDT ,
[2023-07-24 12:15] LABS: Absolute Lymphocyte Count 1.35 X10^3/uL (0.83-4.51); Basophil# 0.07 X10^3/uL; Basophil% 0.3 % (0-1); Eosinophil# 0.24 X10^3/uL; Hematocrit 29.7 % (37-47); Hemoglobin 8.7 g/dL (12.0-15.0); Lymphocyte # 1.35 X10^3/ul (0.83-4.51); Lymphocyte % 5.6 % (19-41); Mean Corp Hgb Conc 29.3 g/dL (32-36); Mean Corpuscular Hgb 24.7 pg (27.0-32.0); Mean Corpuscular Volume 84.4 fL (81-99); Mean Platelet Vol. 9.6 fl (6.2-12.0); Monocyte# 1.31 X10^3/uL; Monocyte% 5.4 % (0-10); NRBC Flagged by Analyzer 0 % (0-5); Neutrophil # 20.95 X10^3/uL (2.7-7.7); POSITIVE DIFFERENTIAL YES; Platelet Count 442 K/mm3 (150-450); RBC Distribution Width CV 18.5 % (11.6-14.6); RBC Distribution Width SD 56.7 fl (35.1-43.9); Red Blood Count 3.52 M/mm3 (4.2-5.4); White Blood Count 24.1 K/mm3 (4.4-11.0)
[2023-07-24 12:17] LABS: Differential Indicated SCAN CRITERIA MET
[2023-07-24] MEDS: 0.9% Normal Saline (1000mL) 1,000 ML 999 ML IV (12:26)
[2023-07-24 12:31] LABS: ALB/GLOB Ratio 0.4 RATIO (0.9-2.4); AST(SGOT) 44 U/L (15-37); Alanine Aminotransfer ALT/SGPT 23 U/L (13-56); Albumin, Serum 1.7 g/dL (3.2-5.0); Alkaline Phosphatase 159 U/L (45-117); Anion Gap 11 (5-15); BUN 12 mg/dL (7-18); BUN/Creat Ratio 22.5 RATIO (10-20); Calcium,Total 10.3 mg/dL (8.5-10.1); Chloride 98 mmol/L (98-107); Creatinine, Serum 0.53 mg/dL (0.55-1.02); EST Glomerular Filtration Rate 124 mL/min (>60); Est Glom Filt Rate - Afr Amer 150 mL/min (>60); Estimated Creatinine Clearance 88.39 ml/min; Globulin 4.4 g/dL (2.2-4.2); Glucose 93 mg/dL (74-106); Potassium 3.9 mmol/L (3.5-5.1); Protein, Total 6.1 g/dL (6.4-8.2); Sodium Level 131 mmol/L (136-145)
[2023-07-24 12:43] LABS: Mucous, Urine 0 SEEN /hpf (<or=2+); Squamous Epithelial Cells - UA 0 SEEN /hpf (5-10)
[2023-07-24 12:44] LABS: Color, Urine Yellow (Yellow); Glucose, Dipstick Normal (Normal); Ketone-Dipstick Negative (Negative); Leukocyte Esterase-Dipstick 500 /ul (Negative); Nitrite-Dipstick Negative (Negative); Occult Blood-Urine 250 /ul (Negative); Protein-Dipstick 100 mg/dl (Negative); Urine Bilirubin Dipstick Negative (Negative); Urine Clarity Sl. Cloudy (Clear); Urine Urobilinogen Normal (Normal); Urine pH 6.5 (5.0 - 8.0)
[2023-07-24 13:08] LABS: Differential Comment SCANNED
[2023-07-24] MEDS: fentaNYL 100 MCG/2 ML Ampul 25 MCG IV ×2 (13:10→16:17)
[2023-07-24] MEDS: Ondansetron 4 MG/2 ML Vial IV (13:10)
[2023-07-24 13:12] LABS: Bacteria 1+ /hpf (None Seen); Red Blood Cells-Urine 10-25 SEEN /hpf (0-5); White Blood Cells 10-25 SEEN /hpf (0-5)
--- NOTE | 2023-07-24 13:34 | PCM.HP.STD ---
HPI - General General Date of Admission: 07/24/23 Date of Service: 07/24/23 Chief Complaint: Small HPI Narrative ISABELLA LAL, is a 57 F who presents to the ED with concern regarding fall around 2 AM this morning. 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 She was recently discharged from [facility] for a prolonged course of infections but the source was not localized. Also has a history of severe anemia following hematuria on Eliquis 5 mg twice daily, the medication Eliquis has been reduced to 2.5 mg twice daily and her hematuria has responded to that. She has been off chemotherapy for the past 4 weeks and she has been evaluated for clinical trials but given her severe anemia she has not been a candidate yet. Today at the time of presentation in the ED, she was very drowsy, WBC 24.1, hemoglobin 8.7 with MCV of 84.4, platelet count 442, sodium 131, creatinine 1.5, calcium 10.3, AST 44, ALP 159, albumin 0.7, total protein 6.1, globulin 4.4, urine protein 100, occult blood 250, leukoesterase 500, WBC 10-25, urine bacteria 1+. Chest x-ray showing mild left pleural effusion with left basilar consolidation concerning for pneumonia She has presented to the ED with similar concerns in January 2023, Intramedullary soha placement in the left femur due to radiation for metastatic lung disease. [facility] Medical History (Updated 07/24/23 @ 13:56 by JOHN Schaeffer) DVT (deep venous thrombosis) Stage 4 lung cancer Cancer of femur Home Medications ?Medication ?Instructions ?Recorded ?Last Taken ?Type sertraline 25 mg tablet (Zoloft) 25 mg PO DAILY depression 09/08/16 09/21/16 History prednisolone acetate 1 % eye 1 drp BID steroid eye drops 09/21/16 09/21/16 History drops,suspension apixaban 2.5 mg tablet (Eliquis) 2.5 mg PO BID 07/24/23 Unknown History budesonide 160 mcg-glycopyr 9 inh inhalation 07/24/23 Unknown History mcg-formot 4.8 mcg/actuation HFA inhaler (Breztri Aerosphere) furosemide 20 mg tablet 20 mg PO DAILY 07/24/23 Unknown History morphine 15 mg tablet,extended 15 mg PO BID 07/24/23 Unknown History release oxybutynin chloride 5 mg tablet 5 mg PO QHS PRN 07/24/23 Unknown History oxycodone 10 mg tablet 10 mg PO Q4H PRN PRN pain 07/24/23 Unknown History pyridoxine (vitamin B6) 100 mg 100 mg PO DAILY 07/24/23 Unknown History tablet ropinirole 0.25 mg tablet 0.25 mg PO QHS 07/24/23 Unknown History sodium chloride 1,000 mg soluble 1,000 mg BID 07/24/23 Unknown History tablet Allergy/AdvReac Type Severity Reaction Status Date / Time No Known Allergies Allergy Verified 07/24/23 10:01 Surgical History History of thyroid surgery Hx of eye surgery S/P ORIF (open reduction internal fixation) fracture Social History Smoking Status: Former smoker ROS ROS Narrative Extremely drowsy and not responding well to sensory stimulation. Review of Systems ROS Unobtainable: due to mental condition Vital Signs Vital Signs Vital Signs: 07/24/23 09:57 07/24/23 10:02 07/24/23 11:46 Temperature 96.5 F L Temperature Source Temporal Pulse Rate 100 97 Respiratory Rate 14 22 H Respiratory Effort Normal Non-Labored Respiratory Pattern Normal Blood Pressure 78/52 L 91/57 L Blood Pressure Mean 60 68 Pulse Ox 100 94 Oxygen Delivery Method Room Air Room Air Room Air 07/24/23 13:00 Temperature Temperature Source Pulse Rate 98 Respiratory Rate 23 H Respiratory Effort Respiratory Pattern Blood Pressure 98/72 Blood Pressure Mean 81 Pulse Ox 99 Oxygen Delivery Method Weight Weight: 108 lb Body Mass Index (BMI) 17.4 Physical Exam Const Constitutional Narrative: Malnourished, drowsy, AO x 1 HEENT normocephalic Eyes PERRL Neck no lymphadenopathy Resp normal respiratory effort, no retractions and clear to auscultation bilaterally Cardio regular rate and regular rhythm GI normal to inspection, nondistended, normoactive bowel sounds Extremity normal to inspection Neuro Neuro Narrative: Drowsy but arousable Results Lab / Micro Data 07/24/23 12:05 07/24/23 12:05 Labs: Laboratory Results - last 24 hr 07/24/23 12:05: WBC 24.1 H, RBC 3.52 L, Hgb 8.7 L, Hct 29.7 L, MCV 84.4, MCH 24.7 L, MCHC 29.3 L, RDW Std Deviation 56.7 H, RDW Coeff of Gee 18.5 H, Plt Count 442, MPV 9.6, Immature Gran % (Auto) 0.700, Neut % (Auto) 87.0 H, Lymph % (Auto) 5.6 L, [place] % (Auto) 5.4, Eos % (Auto) 1.0, Baso % (Auto) 0.3, Absolute Neuts (auto) 21.0 H, Absolute Lymphs (auto) 1.35, Nucleated RBC % 0, Differential Comment SCANNED, Sodium 131 L, Potassium 3.9, Chloride 98, Carbon Dioxide 22.0, Anion Gap 11, BUN 12, Creatinine 0.53 L, Estim Creat Clear Calc 88.39, Est GFR (MDRD) Af Amer 150, Est GFR (MDRD) Non-Af 124, BUN/Creatinine Ratio 22.5 H, Glucose 93, Calcium 10.3 H, Total Bilirubin 0.60, AST 44 H, ALT 23, Alkaline Phosphatase 159 H, Total Protein 6.1 L, Albumin 1.7 L, Globulin 4.4 H, Albumin/Globulin Ratio 0.4 L 07/24/23 12:30: Urine Color Yellow, Urine Clarity Sl. Cloudy, Urine pH 6.5, Ur Specific [place] 1.020, Urine Protein 100 H, Urine Glucose (UA) Normal, Urine Ketones Negative, Urine Occult Blood 250 H, Urine Nitrite Negative, Urine Bilirubin Negative, Urine Urobilinogen Normal, Ur Leukocyte Esterase 500 H, Urine RBC 10-25 SEEN, Urine WBC 10-25 SEEN, Ur Squamous Epith Cells 0 SEEN, Urine Bacteria 1+, Urine Mucus 0 SEEN Imaging Radiology Impression Brain CT 07/24/23 11:40 IMPRESSION: No acute intracranial process identified. Chronic involutional and white matter changes. Electronically Signed: Melissa Hua MD at 12:58 EDT , Cervical Spine CT 07/24/23 11:40 IMPRESSION: No evidence for acute fracture or dislocation in the cervical spine. Mild degenerative change. Increased size of multiple pulmonary nodules with increased size of incompletely imaged left upper lobe/posterior mediastinal mass, concerning for malignancy and metastases Electronically Signed: Melissa Hua MD at 13:04 EDT , Chest X-Ray 07/24/23 11:41 IMPRESSION: Mild left pleural effusion with left basilar consolidation, concerning for pneumonia. Increased size of mass or pneumonia in the left suprahilar lung. Bilateral pulmonary nodules and interstitial opacities again seen. Electronically Signed: Melissa Hua MD at 13:07 EDT , Assessment & Plan Assessment/Plan (1) UTI (urinary tract infection): PLAN: Plan 57-year-old female with a history of metastatic stage IV lung carcinoma now presents to the ED with concerns regarding progressive weakness and falls and laboratory investigations suggestive of urinary tract infection. She is being admitted for manage further management of her UTI and also for concerns regarding placement as family members are finding it difficult to take care of her at home. She was recently admitted to [facility] for similar concerns and her source of infection was not known. She was discharged 2 days prior to her presentation at [facility]. Per her boyfriend [primary care caregiver] at the time of time of her discharge her sensorium is improved but she is now becoming progressively more drowsy. #UTI: -Urine cultures, blood cultures -Start on IV levofloxacin -Infectious disease consult given the prolonged course of infections and underlying immunosuppression -Admit to [facility] 3 and monitor for fevers #Falls: -No injuries, could be related to her drowsiness and infection -PT/OT evaluation -Case management evaluation before dispo #Lung carcinoma: -Disseminated and previously did not tolerate chemotherapy -Being evaluated for novel therapies through clinical trial but because of her anemia has not been started on any therapy for the last 4 weeks -Continue to hold off management to tide over present acute symptoms #Severe anemia: -Had ongoing hematuria while on Eliquis 5 mg twice daily, recently changed to 2.5 mg twice daily at [facility] -No features of hematuria at this time -Continue to monitor hemoglobin #Altered mentation: -Could be related to her ongoing infection versus medications -Maintaining airway well, will continue to monitor and observe response after IV antibiotics. #Hyponatremia: Sodium is 131 at this time, will hold off salt tabs #DVT: Apixaban 2.5 mg twice daily #Chronic pain: Morphine 40 mg twice daily #Restless leg syndrome: Ropinirole 0.5 mg nightly depression #Depression Zoloft 25 mg daily #Goals of care: Briefly discussed with caregiver and POA [brother] regarding the overall health condition and deterioration in her clinical symptoms. They understand but would like to defer discussions regarding hospice or further goals of care later.
[2023-07-24] MEDS: Ceftriaxone 1 GM/50 ML BAG IV (14:37)
[2023-07-24 14:58] LABS: Lactic Acid 1.2 mmol/L (0.4-1.9)
[2023-07-24] MEDS: Azithromycin 500 MG in Dextrose 5%-Water (250mL Bag) 250 ML 250 MG IV (15:18)
[2023-07-24] MEDS: morphine SR 15 MG Tablet PO (21:11)
[2023-07-24] MEDS: Acetaminophen 325 MG Tablet 650 MG PO (21:12)
[2023-07-24] MEDS: Pramipexole Di-HCl 0.125 MG Tablet PO (21:16)
[2023-07-24] MEDS: APIXABAN 2.5 MG TABLET (WCH) PO (21:23)
--- NOTE | 2023-07-24 22:08 | PCM.HOSP.N ---
Hospitalist Note Patient with notable agitation. Admitted with ongoing treatment of UTI. Has been pulling out her IV and agitated with staff. Will trial low dose seroquel x 1 dose now.
[2023-07-24] MEDS: QUEtiapine 25 MG Tablet PO (22:16)
[2023-07-25 04:00] VITALS: BP 100/81; PULSE 100; RESP 16; TEMP 36.6; O2SAT 98
[2023-07-25 07:07] LABS: Hematocrit 25.6 % (37-47); Hemoglobin 7.5 g/dL (12.0-15.0); Mean Corp Hgb Conc 29.3 g/dL (32-36); Mean Corpuscular Hgb 24.6 pg (27.0-32.0); Mean Corpuscular Volume 83.9 fL (81-99); Mean Platelet Vol. 9.6 fl (6.2-12.0); Platelet Count 445 K/mm3 (150-450); RBC Distribution Width CV 18.6 % (11.6-14.6); RBC Distribution Width SD 56.5 fl (35.1-43.9); Red Blood Count 3.05 M/mm3 (4.2-5.4); White Blood Count 24.3 K/mm3 (4.4-11.0)
[2023-07-25 07:27] LABS: International Normalized Ratio 1.6
[2023-07-25 07:40] LABS: ALB/GLOB Ratio 0.4 RATIO (0.9-2.4); AST(SGOT) 25 U/L (15-37); Alanine Aminotransfer ALT/SGPT 23 U/L (13-56); Albumin, Serum 1.8 g/dL (3.2-5.0); Alkaline Phosphatase 161 U/L (45-117); Anion Gap 6 (5-15); BUN 13 mg/dL (7-18); BUN/Creat Ratio 21.3 RATIO (10-20); Chloride 100 mmol/L (98-107); Creatinine, Serum 0.61 mg/dL (0.55-1.02); EST Glomerular Filtration Rate 107 mL/min (>60); Est Glom Filt Rate - Afr Amer 129 mL/min (>60); Estimated Creatinine Clearance 73.17 ml/min; Globulin 4.2 g/dL (2.2-4.2); Glucose 92 mg/dL (74-106); Magnesium 2.3 mg/dL (1.6-2.6); Phosphorus 3.9 mg/dL (2.5-4.9); Sodium Level 131 mmol/L (136-145); Thyroid Stim Hormone (TSH) 1.03 uIU/mL (0.358-3.74)
--- NOTE | 2023-07-25 08:21 | PN.HOSP_ITS ---
Reason for Visit Reason for Visit: Diagnoses Urinary tract infection, site not specified (07/24/23) Subjective Subjective 7-year-old female with a history of metastatic stage IV lung carcinoma now presents to the ED with concerns regarding progressive weakness and falls and laboratory investigations suggestive of urinary tract infection. She is being admitted for manage further management of her UTI and also for concerns regarding placement as family members are finding it difficult to take care of her at home. Objective Data Objective Data Vital Signs: Vital Signs Temp Pulse Resp BP Pulse Ox O2 Del Method 97.9 F 100 16 100/81 H 98 Room Air 07/25/23 04:00 07/25/23 04:00 07/25/23 04:00 07/25/23 04:00 07/25/23 04:00 07/25/23 07:21 Oxygen Delivery Method Room Air Weight: 46.675 kg Body Mass Index (BMI) 18.2 Intake & Output: Intake and Output for Last 24 Hours 07/23/23 07/24/23 07/25/23 23:59 23:59 23:59 Intake Total 1305 / 1305 Output Total 725 / 725 600 / 600 Balance 580 / 580 -600 / -600 Lab / Micro Data 07/25/23 06:31 07/25/23 06:31 Labs: Laboratory Results - last 24 hr 07/24/23 12:05: WBC 24.1 H, RBC 3.52 L, Hgb 8.7 L, Hct 29.7 L, MCV 84.4, MCH 24.7 L, MCHC 29.3 L, RDW Std Deviation 56.7 H, RDW Coeff of Gee 18.5 H, Plt Count 442, MPV 9.6, Immature Gran % (Auto) 0.700, Neut % (Auto) 87.0 H, Lymph % (Auto) 5.6 L, [place] % (Auto) 5.4, Eos % (Auto) 1.0, Baso % (Auto) 0.3, Absolute Neuts (auto) 21.0 H, Absolute Lymphs (auto) 1.35, Nucleated RBC % 0, Differential Comment SCANNED, Sodium 131 L, Potassium 3.9, Chloride 98, Carbon Dioxide 22.0, Anion Gap 11, BUN 12, Creatinine 0.53 L, Estim Creat Clear Calc 88.39, Est GFR (MDRD) Af Amer 150, Est GFR (MDRD) Non-Af 124, BUN/Creatinine Ratio 22.5 H, Glucose 93, Calcium 10.3 H, Total Bilirubin 0.60, AST 44 H, ALT 23, Alkaline Phosphatase 159 H, Total Protein 6.1 L, Albumin 1.7 L, Globulin 4.4 H, Albumin/Globulin Ratio 0.4 L 07/24/23 12:30: Urine Color Yellow, Urine Clarity Sl. Cloudy, Urine pH 6.5, Ur Specific [place] 1.020, Urine Protein 100 H, Urine Glucose (UA) Normal, Urine Ketones Negative, Urine Occult Blood 250 H, Urine Nitrite Negative, Urine Bilirubin Negative, Urine Urobilinogen Normal, Ur Leukocyte Esterase 500 H, Urine RBC 10-25 SEEN, Urine WBC 10-25 SEEN, Ur Squamous Epith Cells 0 SEEN, Urine Bacteria 1+, Urine Mucus 0 SEEN 07/24/23 14:15: Lactic Acid 1.2 07/25/23 06:31: WBC 24.3 H, RBC 3.05 L, Hgb 7.5 L, Hct 25.6 L, MCV 83.9, MCH 24.6 L, MCHC 29.3 L, RDW Std Deviation 56.5 H, RDW Coeff of Gee 18.6 H, Plt Count 445, MPV 9.6, PT 19.0 H, INR 1.6, Sodium 131 L, Potassium 4.0, Chloride 100, Carbon Dioxide 25.0, Anion Gap 6, BUN 13, Creatinine 0.61, Estim Creat Clear Calc 73.17, Est GFR (MDRD) Af Amer 129, Est GFR (MDRD) Non-Af 107, B UN/Creatinine Ratio 21.3 H, Glucose 92, Calcium 10.0, Phosphorus 3.9, Magnesium 2.3, Total Bilirubin 0.60, Direct Bilirubin 0.30, AST 25, ALT 23, Alkaline Phosphatase 161 H, Total Protein 6.0 L, Albumin 1.8 L, Globulin 4.2, A lbumin/Globulin Ratio 0.4 L, TSH 1.03 Radiography Diagnostic Testing: Radiology Impression Brain CT 07/24/23 11:40 IMPRESSION: No acute intracranial process identified. Chronic involutional and white matter changes. Electronically Signed: Melissa Hua MD at 12:58 EDT , Cervical Spine CT 07/24/23 11:40 IMPRESSION: No evidence for acute fracture or dislocation in the cervical spine. Mild degenerative change. Increased size of multiple pulmonary nodules with increased size of incompletely imaged left upper lobe/posterior mediastinal mass, concerning for malignancy and metastases Electronically Signed: Melissa Hua MD at 13:04 EDT , Chest X-Ray 07/24/23 11:41 IMPRESSION: Mild left pleural effusion with left basilar consolidation, concerning for pneumonia. Increased size of mass or pneumonia in the left suprahilar lung. Bilateral pulmonary nodules and interstitial opacities again seen. Electronically Signed: Melissa Hua MD at 13:07 EDT , Physical Exam Narrative GENERAL: Frail looking and cachectic HEENT: Atraumatic; normocephalic EYES; Anicteric, Normal Conjunctiva NECK; supple, normal thyroid, RESPIRATORY: Diminished to auscultation CARDIOVASCULAR: Regular S1 S2, GI: soft, normoactive bowel sounds, : No Renal angle tenderness; EXTREMITIES: No edema, no clubbing, MUSCULOSKELETAL: no muscle wasting NEURO: Awake; no lateralizing signs. SKIN: No Rash PSYCH; Flat affect Assessment & Plan Assessment/Plan (1) UTI (urinary tract infection): PLAN: Plan 57-year-old female with a history of metastatic stage IV lung carcinoma now presents to the ED with concerns regarding progressive weakness and falls and laboratory investigations suggestive of urinary tract infection. She is being admitted for manage further management of her UTI and also for concerns regarding placement as family members are finding it difficult to take care of her at home. 1. Acute cystitis ? Patient started on Levaquin consult placed to ID given her immunosuppressive status urine and blood culture sent we will follow-up on result 2. Physical deconditioning with recurrent falls - Requested for PT OT eval and social organization professor to assist with discharge planning 3. Stage IV lung CA ? Patient apparently did not tolerate chemo. Plan is for patient to follow-up with primary care physician following discharge 4. Anemia - Secondary to chronic disorder as well as anemia of malignancy monitoring H&H and transfuse if patient becomes symptomatic or hemoglobin falls below 7 5. Acute metabolic encephalopathy ? Secondary to acute cystitis management as discussed above 6. Hyponatremia ? 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 History of DVT ? Patient is on apixaban 2.5 mg twice daily 8. Chronic pain syndrome ? Discontinue pain meds 9. Depression ? Patient is on Zoloft 10. Restless leg syndrome ? Patient is on ropinirole at night 11. Suspected severe protein calorie malnutrition ? Evidenced by significant weight loss, low BMI decreased oral intake consult placed to dietitian 12. DVT prophylaxis ? On apixaban Time spent in the patient's overall evaluation,decision-making process, review of diagnostic data, adjustment of management, discussion with other providers, nursing nursing and ancillary staff involved in patient's care documentation, 52 Minutes Charges/Coding Visit Charges Inpatient E&M: 68029 [facility] L3
[2023-07-25 09:08] VITALS: BP 88/75; PULSE 114; RESP 18; TEMP 36.6; O2SAT 96
[2023-07-25] MEDS: levoFLOXacin IV 750 MG/150 ML BAG 100 MG IV (09:17)
[2023-07-25] MEDS: Sertraline 50 MG Tablet 25 MG PO (09:31)
[2023-07-25] MEDS: APIXABAN 2.5 MG TABLET (WCH) PO ×2 (09:31→20:53)
[2023-07-25] MEDS: morphine SR 15 MG Tablet PO ×2 (09:31→20:53)
[2023-07-25] MEDS: Furosemide 20 MG Tablet PO (09:31)
[2023-07-25] MEDS: Pyridoxine HCl 100 MG Tablet PO (09:31)
--- NOTE | 2023-07-25 11:25 | CASEMGMT ---
RN CM Face to Face with patient for initial transition planning/care coordination assessment. RN CM introduced self and role at [facility]. Patient sitting in chair, alert and slightly confused, family at bedside. Patient and family willing to participate in assessment and is able to answer all questions appropriately. Care providers, pharmacy, and demographics verified. PCP: Grace Specialists: Dago Falk, oncologist [facility]; Chris, oncologist/porcelain waxer [facility]; Kay, pit supervisor Preferred Pharmacy: [facility] Insurance: [employer] Prescription Benefit: yes Living Will/HPOA: yes, brother Marcel Beebe. LNOK: brother Living Arrangements: Patient lives alone but has family friend Frederick staying with patient. Patient lives in a single story home with 2 step to enter. Patient states she is independent but Frederick has been assisting with care at times. Transportation: Frederick, brother DME/HHC: Patient has shower chair, BSC, raised toilet, cane, walker, rollator, and nebulizer at home. No previous SNF. Patient is currently active with [facility]. Patient wishes to discharge home with resumption of HHC, will monitor progress with therapy. RN CM discuss possible SNF at discharge for additional therapy, patient somewhat resistant to SNF but encouraged patient and family to discuss goals or care. Patient states she has no further needs or concerns at this time. CM to follow for discharge planning needs that may arise. Disposition Plan: TBD, anticipate HHC vs SNF pending course of treatment and progress with therapy. Alfreda CABRALN, RN, CM
--- NOTE | 2023-07-25 12:07 | CASEMGMT ---
Discharge Planning A list of?SNF providers including quality and resource use data and consistent with the patient's preferred geographic region, medical needs, and insurance network was created in [employer] Guide.? This list was provided to the SW. Janett Randhawa Discharge Planning Asst.
[2023-07-25 13:00] VITALS: BP 74/53; PULSE 116; RESP 18; TEMP 37; O2SAT 96
[2023-07-25] MEDS: oxyCODONE 5 MG Tablet PO ×2 (13:25→18:19)
--- NOTE | 2023-07-25 13:46 | PCM.CONS.GEN ---
Assessment & Plan Assessment/Plan (1) Malignant neoplasm metastatic to left lung: (2) Adult failure to thrive: PLAN: Reviewed [facility] records. UA with mild pyuria, wbc 11-25, no focal urinary symptoms. Wbc has been in the 20s for the past month despite broad spectrum abx during [facility] stay. She wishes to be off of abx. No fever here, no new focal complaints. Will check CT abd/pelvis and stop levaquin while further results pending. Will follow, thank you HPI Consult Data Date of Consult: 07/25/23 HPI Narrative Reason for Consultation: pneumonia HPI Narrative: ISABELLA LAL, is a 57 F with metastatic lung cancer, recent admit to [facility] with discharge 07/08. During that stay was given 10+ days empiric abx for necrotic renal mass, seen by ID, biopsy done. Admitted after fall early in AM 07/24/23. Admitted on levaquin after initial azithro/ceftriaxone. Feeling ok, has chronic abd pain due to her cancer. No port in place. Wants to be off abx. No cough or SOB. No fever. Full ROS performed and neg except as noted above. [facility] Medical History DVT (deep venous thrombosis) Stage 4 lung cancer Cancer of femur Home Medications ?Medication ?Instructions ?Recorded ?Last Taken ?Type sertraline 25 mg tablet (Zoloft) 25 mg PO DAILY depression 09/08/16 09/21/16 History prednisolone acetate 1 % eye 1 drp BID steroid eye drops 09/21/16 09/21/16 History drops,suspension apixaban 2.5 mg tablet (Eliquis) 2.5 mg PO BID afib 07/24/23 07/25/23 History budesonide 160 mcg-glycopyr 9 inh inhalation .QD sob 07/24/23 07/24/23 History mcg-formot 4.8 mcg/actuation HFA inhaler (Breztri Aerosphere) furosemide 20 mg tablet 20 mg PO DAILY fluid pill 07/24/23 Unknown History morphine 15 mg tablet,extended 15 mg PO BID pain 07/24/23 Unknown History release oxybutynin chloride 5 mg tablet 5 mg PO QHS PRN bladder 07/24/23 Unknown History oxycodone 10 mg tablet 10 mg PO Q4H PRN PRN pain 07/24/23 Unknown History pyridoxine (vitamin B6) 100 mg 100 mg PO DAILY vitamin 07/24/23 Unknown History tablet ropinirole 0.25 mg tablet 0.[address] remy 07/24/23 Unknown History sodium chloride 1,000 mg soluble 1,000 mg PO BID . 07/24/23 07/25/23 History tablet Allergy/AdvReac Type Severity Reaction Status Date / Time No Known Allergies Allergy Verified 07/24/23 10:01 Surgical History History of thyroid surgery Hx of eye surgery S/P ORIF (open reduction internal fixation) fracture Social History Smoking Status: Never smoker Physical Exam Const alert, oriented x3 and no apparent distress General Appearance: cooperative HEENT normocephalic and head/scalp atraumatic Eyes PERRL and EOMs intact bilaterally Neck supple and No nodes Resp normal air movement and clear to auscultation bilaterally Cardio regular rate and regular rhythm GI soft to palpation and non-distended GI Narrative: some abd tenderness Extremity General Extremity: Negative for edema Skin no rashes or lesions noted Neuro CN's II-XII intact bilaterally Lab / Micro Data Attestation: I reviewed the patient's lab results. 07/25/23 06:31 07/25/23 06:31 Labs: Laboratory Results - last 24 hr 07/24/23 14:15: Lactic Acid 1.2 07/25/23 06:31: WBC 24.3 H, RBC 3.05 L, Hgb 7.5 L, Hct 25.6 L, MCV 83.9, MCH 24.6 L, MCHC 29.3 L, RDW Std Deviation 56.5 H, RDW Coeff of Gee 18.6 H, Plt Count 445, MPV 9.6, PT 19.0 H, INR 1.6, Sodium 131 L, Potassium 4.0, Chloride 100, Carbon Dioxide 25.0, Anion Gap 6, BUN 13, Creatinine 0.61, Estim Creat Clear Calc 73.17, Est GFR (MDRD) Af Amer 129, Est GFR (MDRD) Non-Af 107, BUN/Creatinine Ratio 21.3 H, Glucose 92, Calcium 10.0, Phosphorus 3.9, Magnesium 2.3, Total Bilirubin 0.60, Direct Bilirubin 0.30, AST 25, ALT 23, Alkaline Phosphatase 161 H, Total Protein 6.0 L, Albumin 1.8 L, Globulin 4.2, Albumin/Globulin Ratio 0.4 L, TSH 1.03
--- NOTE | 2023-07-25 16:54 | CASEMGMT ---
Social Work- SW met with pt, pt brother and HCPOA, Marcel Beebe, and pt friend/SO Frederick Weiss to discuss hospice referral. Pt states that she walked 'fine' with PT and feels she is able to go home. Pt states that she is agreeable to hospice referral, but states that when she feels stronger, she wants the option to d/c from hospice. SW provided education on hospice services. Pt states that she wants a referral to [facility]. Pt states that her pain has been uncontrolled and she has more severe pain in the evening. Pt would like confirmation that she will receive pain meds at a higher level this evening. SW provided education on hospice services and pain management and also passed concerns on to bedside nurse. Pt HCPOA/brother spoke to SW privately to relay that pt refuses to go to a facility, but is unsafe at home. Pt brother states that pt has fallen 3 times recently and needs 24/7 supervision d/t waking up every 2 hours overnight. Pt brother expressed concerns about pt safety, as pt lacks awareness of physical limitations and is impulsive. Pt brother reports that they can not provide the care needed at home. SW provided education on SNF, inpt unit of hospice, HHC, and various care options. Pt agreeable to [facility] referral; referral completed in coordination with Nikolai. JAMES Castillo
[2023-07-25 17:00] VITALS: BP 81/54; PULSE 102; RESP 18; TEMP 36.6; O2SAT 94
[2023-07-25 20:46] VITALS: BP 88/63; PULSE 113; RESP 18; TEMP 37.1; O2SAT 96
[2023-07-25] MEDS: Pramipexole Di-HCl 0.125 MG Tablet PO (20:53)
[2023-07-26] VITALS (8 sets, daily range): BP systolic 77–104; BP diastolic 41–64; PULSE 97–118; RESP 16–18; TEMP 36.8–37.8; O2SAT 92–99
[2023-07-26] MEDS: Acetaminophen 325 MG Tablet 650 MG PO ×2 (03:18→17:22)
[2023-07-26] MEDS: oxyCODONE 5 MG Tablet PO ×3 (03:18→14:14)
[2023-07-26 06:21] LABS: Absolute Lymphocyte Count 1.07 X10^3/uL (0.83-4.51); Absolute Neutrophil Count 15.7 X10^3/uL (2.0-7.7); Basophil# 0.04 X10^3/uL; Basophil% 0.2 % (0-1); Eosinophil# 0.27 X10^3/uL; Eosinophils% 1.4 % (0-5); Hematocrit 23.2 % (37-47); Hemoglobin 6.7 g/dL (12.0-15.0); Lymphocyte # 1.07 X10^3/ul (0.83-4.51); Lymphocyte % 5.7 % (19-41); Mean Corp Hgb Conc 28.9 g/dL (32-36); Mean Corpuscular Hgb 24.1 pg (27.0-32.0); Mean Corpuscular Volume 83.5 fL (81-99); Mean Platelet Vol. 9.7 fl (6.2-12.0); Monocyte# 1.46 X10^3/uL; Monocyte% 7.8 % (0-10); NRBC Flagged by Analyzer 0 % (0-5); Neutrophil # 15.66 X10^3/uL (2.7-7.7); Neutrophil % 83.9 % (47-70); Platelet Count 412 K/mm3 (150-450); RBC Distribution Width CV 18.2 % (11.6-14.6); Red Blood Count 2.78 M/mm3 (4.2-5.4); White Blood Count 18.7 K/mm3 (4.4-11.0)
[2023-07-26 07:03] LABS: Anion Gap 5 (5-15); BUN 10 mg/dL (7-18); BUN/Creat Ratio 17.6 RATIO (10-20); Calcium,Total 10.3 mg/dL (8.5-10.1); Chloride 101 mmol/L (98-107); Creatinine, Serum 0.57 mg/dL (0.55-1.02); EST Glomerular Filtration Rate 116 mL/min (>60); Est Glom Filt Rate - Afr Amer 140 mL/min (>60); Glucose 104 mg/dL (74-106); Magnesium 2.1 mg/dL (1.6-2.6); Phosphorus 3.3 mg/dL (2.5-4.9); Potassium 3.9 mmol/L (3.5-5.1); Sodium Level 131 mmol/L (136-145)
--- NOTE | 2023-07-26 09:25 | PCM.PN.HOSP ---
Reason for Visit Reason for Visit: Diagnoses Secondary malignant neoplasm of left lung (07/24/23) Urinary tract infection, site not specified (07/24/23) Adult failure to thrive (07/24/23) Subjective Subjective Patient seen WBC count remains elevated at 18.7, hemoglobin down to 6.5 and order has been given for patient to be transfused with 1 unit PRBC Objective Data Objective Data Vital Signs: Vital Signs Temp Pulse Resp BP Pulse Ox O2 Del Method 98.3 F 97 16 104/64 99 Room Air 07/26/23 07:50 07/26/23 07:50 07/26/23 07:50 07/26/23 07:50 07/26/23 08:04 07/26/23 08:04 Oxygen Delivery Method Room Air Weight: 46.675 kg Body Mass Index (BMI) 18.2 Intake & Output: Intake and Output for Last 24 Hours 07/24/23 07/25/23 07/26/23 23:59 23:59 23:59 Intake Total 1305 / 1305 200 / 200 Output Total 725 / 725 950 / 1150 800 / 800 Balance 580 / 580 -750 / -950 -800 / -800 Medical Nutrition Assessment Dietitian: Malnutrition Criteria Met Start: 07/25/23 15:43 Freq: Status: Active Protocol: Document 07/25/23 15:43 SLA (Rec: 07/25/23 15:43 SLA [email or web address]) Nutrition Malnutrition Evidence of Malnutrition Exists Yes Malnutrition (severe): Chronic Evidenced By Suboptimal Energy Intake ( Severe),Weight Loss (Severe), Physical Changes (Severe) Clinical Problem Chronic Disease or Condition Related Malnutrition Etiology related to end stage lung cancer w/ mets to kidney and inadequate energy intake to meet est nutritional needs Signs/Symptoms as evidenced by 20.4% unintended wt loss since 2021 when dx w/ cancer, 3.2% wt loss within past month, po intake meeting <75% of est nutritional needs x > 6 months , fat loss/muscle wasting throughout body and BMI 18.2 Status Active Problem Recommendation Dietitian Recommendations/Changes Continue liberal regular diet as ordered Will order ensure clear w/ breakfast and dinner and ensure plus high protein w/ dinner for increased nutrition if consumed Rec appetite stimulant to help encourage increased po intake Lab / Micro Data 07/26/23 06:05 07/26/23 06:05 Labs: Laboratory Results - last 24 hr 07/26/23 06:05: WBC 18.7 H, RBC 2.78 L, Hgb 6.7 L, Hct 23.2 L, MCV 83.5, MCH 24.1 L, MCHC 28.9 L, RDW Std Deviation 55.0 H, RDW Coeff of Gee 18.2 H, Plt Count 412, MPV 9.7, Immature Gran % (Auto) 1.000 H, Neut % (Auto) 83.9 H, Lymph % (Auto) 5.7 L, [place] % (Auto) 7.8, Eos % (Auto) 1.4, Baso % (Auto) 0.2, Absolute Neuts (auto) 15.7 H, Absolute Lymphs (auto) 1.07, Nucleated RBC % 0, Sodium 131 L, Potassium 3.9, Chloride 101, Carbon Dioxide 25.0, Anion Gap 5, BUN 10, Creatinine 0.57, Estim Creat Clear Calc 78.30, Est GFR (MDRD) Af Amer 140, Est GFR (MDRD) Non-Af 116, BUN/Creatinine Ratio 17.6, Glucose 104, Calcium 10.3 H, Phosphorus 3.3, Magnesium 2.1 07/26/23 09:07: Crossmatch See Detail Physical Exam Narrative GENERAL: Frail looking and cachectic HEENT: Atraumatic; normocephalic EYES; Anicteric, Normal Conjunctiva NECK; supple, normal thyroid, RESPIRATORY: Diminished to auscultation CARDIOVASCULAR: Regular S1 S2, GI: soft, normoactive bowel sounds, : No Renal angle tenderness; EXTREMITIES: No edema, no clubbing, MUSCULOSKELETAL: no muscle wasting NEURO: Awake; no lateralizing signs. SKIN: No Rash PSYCH; Flat affect Assessment & Plan Assessment/Plan (1) UTI (urinary tract infection): PLAN: Plan 57-year-old female with a history of metastatic stage IV lung carcinoma now presents to the ED with concerns regarding progressive weakness and falls and laboratory investigations suggestive of urinary tract infection. She is being admitted for manage further management of her UTI and also for concerns regarding placement as family members are finding it difficult to take care of her at home. 1. Acute cystitis ? Patient started on Levaquin consult placed to ID given her immunosuppressive status urine and blood culture sent we will follow-up on result ? Urine cultures pending. WBC count trending down 2. Physical deconditioning with recurrent falls - Requested for PT OT eval and social services designee to assist with discharge planning 3. Stage IV lung CA ? Patient apparently did not tolerate chemo. Plan is for patient to follow-up with primary care physician following discharge 4. Anemia - Secondary to chronic disorder as well as anemia of malignancy monitoring H&H and transfuse if patient becomes symptomatic or hemoglobin falls below 7 ? Patient hemoglobin down to 6.5 and order has been given for patient to be transfused 1 unit PRBC with posttransfusion H&H ordered 5. Acute metabolic encephalopathy ? Secondary to acute cystitis management as discussed above 6. Hyponatremia ? 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 History of DVT ? Patient is on apixaban 2.5 mg twice daily 8. Chronic pain syndrome ? Discontinue pain meds 9. Depression ? Patient is on Zoloft 10. Restless leg syndrome ? Patient is on ropinirole at night 11. Suspected severe protein calorie malnutrition ? Evidenced by significant weight loss, low BMI decreased oral intake consult placed to dietitian 12. DVT prophylaxis ? On apixaban Time spent in the patient's overall evaluation,decision-making process, review of diagnostic data, adjustment of management, discussion with other providers, nursing nursing and ancillary staff involved in patient's care documentation, 50 Minutes Charges/Coding Visit Charges Inpatient E&M: 68610 [facility] Hosp L3
[2023-07-26] MEDS: morphine SR 15 MG Tablet PO (10:15)
[2023-07-26] MEDS: Sertraline 50 MG Tablet 25 MG PO (10:15)
[2023-07-26] MEDS: Pyridoxine HCl 100 MG Tablet PO (10:15)
--- NOTE | 2023-07-26 11:33 | NURSING ---
attempted iv restart in order to give blood attempted x2. hydro generation supervisor called for restart. pt states she does not want a midline or picc line but does want to get blood.
--- NOTE | 2023-07-26 13:26 | PCM.PN.ID ---
Physical Exam Narrative Still with pain, wants to go home, no fever Const alert and no apparent distress General Appearance: cooperative Resp normal air movement and clear to auscultation bilaterally Cardio regular rate and regular rhythm GI soft to palpation, non-tender and non-distended Skin no rashes or lesions noted ID ID: Route of nutrition/ use of supplements: [] Nutritional Intake: [] IV Site: [] Woodruff Catheter: [] Assessment & Plan Assessment/Plan (1) Malignant neoplasm metastatic to left lung: (2) Adult failure to thrive: PLAN: Reviewed [facility] records. UA with mild pyuria, wbc 11-25, no focal urinary symptoms. Wbc has been in the 20s for the past month despite broad spectrum abx during [facility] stay. She wishes to be off of abx. No fever here, no new focal complaints. Monitoring off of abx, pt interested in hospice. Will follow
--- NOTE | 2023-07-26 14:21 | CASEMGMT ---
Addendum entered by Zulema You 07/26/23 14:46: Social Work SW set up ambulance for 9pm, it was the first available. SW let pt, brother and significant other in room know. Family states they can take pt home, they can get pt in and out of the car, pt agreeable. SW cancelled transport. Family to call hospice when they are on their way home. BELIA Sweeney Original Note: Social Work Pt met w/hospice, refusing to go to the [facility] or SNF, is insisting on going home. Hospice will supplement care as much as possible at home and will continue to work w/her, will explore other options w/pt if she cannot manage at home. SW notified physician, he will discharge pt. Pt does still need a blood transfusion, so will need to go after that. SW will set up an ambulance to take pt home. BELIA Sweeney
--- NOTE | 2023-07-26 14:26 | DS.PCM_ITS ---
Providers Date of Admission: 07/24/23 Date of Discharge: 07/26/23 Primary Care Physician: Dr. Jacob Edwadrs MD Consultations 07/24/23 14:14 Consult: Infectious Disease Routine Consulting Provider: Marcel Hansen Reason for Consult: disseminated carcinoma lung recent admission at [facility] for chronic infection EMERGENT Consult: No Notified: Yes Date Notified: 07/25/23 Time Notified: 06:26 Method of Notification: Text 07/25/23 14:54 Consult: Hospice / Palliative Care Routine Consulting Provider: [facility] Reason for Consult: Stage IV lung ca EMERGENT Consult: No Notified: Yes Date Notified: 07/26/23 Time Notified: 08:36 Method of Notification: Answering Service Comments:: meeting w/ family at 13:00 07/25 Reason For Visit: UTI Diagnosis Discharge Diagnosis (1) Malignant neoplasm metastatic to left lung: Status: Acute Code(s): C78.02 - Secondary malignant neoplasm of left lung (2) Adult failure to thrive: Status: Acute Code(s): R62.7 - Adult failure to thrive Plan 57-year-old female with a history of metastatic stage IV lung carcinoma now presents to the ED with concerns regarding progressive weakness and falls and laboratory investigations suggestive of urinary tract infection. She is being admitted for manage further management of her UTI and also for concerns regarding placement as family members are finding it difficult to take care of her at home. 1. Acute cystitis ? Patient started on Levaquin consult placed to ID given her immunosuppressive status urine and blood culture sent we will follow-up on result ? Urine cultures pending. WBC count trending down ? Antibiotics discontinued per patient's wish 2. Physical deconditioning with recurrent falls - Requested for PT OT eval and certified social workers in health care to assist with discharge planning 3. Stage IV lung CA ? Patient apparently did not tolerate chemo. Plan is for patient to follow-up with primary care physician following discharge ? Patient was discharged home with hospice 4. Anemia - Secondary to chronic disorder as well as anemia of malignancy monitoring H&H and transfuse if patient becomes symptomatic or hemoglobin falls below 7 ? Patient hemoglobin down to 6.5 and order has been given for patient to be transfused 1 unit PRBC with posttransfusion H&H ordered 5. Acute metabolic encephalopathy ? Secondary to acute cystitis management as discussed above 6. Hyponatremia ? 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 History of DVT ? Patient is on apixaban 2.5 mg twice daily 8. Chronic pain syndrome ? Discontinue pain meds 9. Depression ? Patient is on Zoloft 10. Restless leg syndrome ? Patient is on ropinirole at night 11. Suspected severe protein calorie malnutrition ? Evidenced by significant weight loss, low BMI decreased oral intake consult placed to dietitian 12. DVT prophylaxis ? On apixaban Time spent in the patient's overall evaluation,decision-making process, review of diagnostic data, adjustment of management, discussion with other providers, nursing nursing and ancillary staff involved in patient's care documentation, 50 Minutes Medications at Discharge Home Medications sertraline 25 mg tablet (Zoloft) 25 mg PO DAILY depression 09/08/16 prednisolone acetate 1 % eye drops,suspension 1 drp BID steroid eye drops 09/21/16 budesonide 160 mcg-glycopyr 9 mcg-formot 4.8 mcg/actuation HFA inhaler (Breztri Aerosphere) inh inhalation .QD sob 07/24/23 furosemide 20 mg tablet 20 mg PO DAILY fluid pill 07/24/23 morphine 15 mg tablet,extended release 15 mg PO BID pain 07/24/23 oxybutynin chloride 5 mg tablet 5 mg PO QHS PRN bladder 07/24/23 oxycodone 10 mg tablet 10 mg PO Q4H PRN PRN pain 07/24/23 pyridoxine (vitamin B6) 100 mg tablet 100 mg PO DAILY vitamin 07/24/23 ropinirole 0.25 mg tablet 0.[address] rx 07/24/23 sodium chloride 1,000 mg soluble tablet 1,000 mg PO BID . 07/24/23 Physical Exam Narrative GENERAL: Frail looking and cachectic HEENT: Atraumatic; normocephalic EYES; Anicteric, Normal Conjunctiva NECK; supple, normal thyroid, RESPIRATORY: Diminished to auscultation CARDIOVASCULAR: Regular S1 S2, GI: soft, normoactive bowel sounds, : No Renal angle tenderness; EXTREMITIES: No edema, no clubbing, MUSCULOSKELETAL: no muscle wasting NEURO: Awake; no lateralizing signs. SKIN: No Rash PSYCH; Flat affect Medical Records Data Medical Nutrition Assessment Dietitian: Malnutrition Criteria Met Start: 07/25/23 15:43 Freq: Status: Active Protocol: Document 07/25/23 15:43 SLA (Rec: 07/25/23 15:43 SLA [email or web address]) Nutrition Malnutrition Evidence of Malnutrition Exists Yes Malnutrition (severe): Chronic Evidenced By Suboptimal Energy Intake ( Severe),Weight Loss (Severe), Physical Changes (Severe) Clinical Problem Chronic Disease or Condition Related Malnutrition Etiology related to end stage lung cancer w/ mets to kidney and inadequate energy intake to meet est nutritional needs Signs/Symptoms as evidenced by 20.4% unintended wt loss since 2021 when dx w/ cancer, 3.2% wt loss within past month, po intake meeting <75% of est nutritional needs x > 6 months , fat loss/muscle wasting throughout body and BMI 18.2 Status Active Problem Recommendation Dietitian Recommendations/Changes Continue liberal regular diet as ordered Will order ensure clear w/ breakfast and dinner and ensure plus high protein w/ dinner for increased nutrition if consumed Rec appetite stimulant to help encourage increased po intake Weight / BMI Weight Weight: 46.675 kg Body Mass Index (BMI) 18.2 ABG / Lab / Microbiology Data 07/26/23 06:05 07/26/23 06:05 Laboratory: Laboratory Results - last 24 hr 07/26/23 06:05: WBC 18.7 H, RBC 2.78 L, Hgb 6.7 L, Hct 23.2 L, MCV 83.5, MCH 24.1 L, MCHC 28.9 L, RDW Std Deviation 55.0 H, RDW Coeff of Gee 18.2 H, Plt Count 412, MPV 9.7, Immature Gran % (Auto) 1.000 H, Neut % (Auto) 83.9 H, Lymph % (Auto) 5.7 L, [place] % (Auto) 7.8, Eos % (Auto) 1.4, Baso % (Auto) 0.2, Absolute Neuts (auto) 15.7 H, Absolute Lymphs (auto) 1.07, Nucleated RBC % 0, Sodium 131 L, Potassium 3.9, Chloride 101, Carbon Dioxide 25.0, Anion Gap 5, BUN 10, Creatinine 0.57, Estim Creat Clear Calc 78.30, Est GFR (MDRD) Af Amer 140, Est GFR (MDRD) Non-Af 116, BUN/Creatinine Ratio 17.6, Glucose 104, Calcium 10.3 H, Phosphorus 3.3, Magnesium 2.1 07/26/23 09:07: Blood Type A POSITIVE, Antibody Screen NEGATIVE, Crossmatch See Detail D/C Instructions Discharge Diet: No restrictions Discharge Activity: Return to Normal Activity Call your doctor if you observe: Fever of 101 or Higher, Shortness of breath, Fainting spells and Chest pain Meaningful Use Info Meaningful Use Meaningful Use Diagnoses (Choose all that apply): None applicable Ischemic Stroke Statin Dosing Therapy Reference: STATIN DOSE THERAPY REFERENCE: * Patients > 75 years receive moderate or high dose statin therapy. * Patients 75 years or YOUNGER should receive HIGH intensity statin dose unless contraindicated. You will be required to document reason for non-treatment if statin daily dose does not meet guidelines. HIGH DOSE STATIN THERAPY DAILY Atorvastatin > than or = to 40 mg Rosuvastatin > than or = to 20 mg Amlodipine + Atorvastatin > than or = to 2.5/40 mg Ezetimibe + Simvastatin 10/80 mg Simvastatin 80mg Discharge Plan Admission Admit Date/Time: 07/24/23 15:01 Attending Provider: Beck Dolan Primary Care Provider: Jacob Edwards Consulting Providers: Marcel Hansen; Gerri Willoughby; Beck Murillo; Risa Carpio; Alia Parish; Melissa Styles IMPREGNATOR OPERATOR Discharge Orders/Prescriptions Prescriptions: Continued sertraline [Zoloft] 25 MG tablet 25 mg PO DAILY prednisolone acetate 1 DROP drops,suspension 1 drp Each Eye BID morphine 15 mg tablet extended release 15 mg PO BID furosemide 20 mg tablet 20 mg PO DAILY oxybutynin chloride 5 mg tablet 5 mg PO QHS PRN Breztri Aerosphere 160-9-4.8 mcg/actuation HFA aerosol inhaler inhalation .QD ropinirole 0.25 mg tablet 0.25 mg PO QHS pyridoxine (vitamin B6) 100 mg tablet 100 mg PO DAILY sodium chloride 1,000 mg tablet,soluble 1,000 mg PO BID oxycodone 10 mg tablet 10 mg PO Q4H PRN PRN (Reason: pain) Discontinued Eliquis 2.5 mg tablet 2.5 mg PO BID Referrals / Follow Up: Jacob Edwards MD [Primary Care Provider] - Within 1 Week Disposition Disposition (needs filled in before D/C Order can be placed): Hospice in Home Charges/Coding Visit Charges Inpatient E&M: 21135 Disch Hosp >30min
--- NOTE | 2023-07-26 16:46 | CASEMGMT ---
ITA CM Note: [facility] made aware that pt is discharging home on hospice via [facility], shabana Rowland dc restaurant assistant manager. Estefany MCKINNON RN CM
--- NOTE | 2023-07-26 17:18 | NURSING ---
Pt going home with hospice, family to transport. Ordered blood transfusion complete. IVs removed, VS obtained. Family to call hospice when they arrive to pt's home.
== END 2023-07-26 17:27 | disposition hospice, home (50) | DRG 689 ==
LOC: ED 13:58 → MS3 15:52
PROVIDERS: Nurse Practitioner; Admitting Provider Internal Medicine; Emergency Provider Emergency Medicine; PCP Family Medicine; Visit Provider Internal Medicine
DX: N30.00 Acute cystitis without hematuria (principal); G93.41 Metabolic encephalopathy; E43 Unspecified severe protein-calorie malnutrition; E22.2 Syndrome of inappropriate secretion of antidiuretic hormone; C78.02 Secondary malignant neoplasm of left lung; C79.01 Secondary malignant neoplasm of right kidney and renal pelvis; Z68.1 Body mass index [BMI] 19.9 or less, adult; D63.0 Anemia in neoplastic disease; G25.81 Restless legs syndrome; R62.7 Adult failure to thrive; Z79.01 Long term (current) use of anticoagulants; Z87.891 Personal history of nicotine dependence; G89.4 Chronic pain syndrome; R63.4 Abnormal weight loss; R29.6 Repeated falls; Z86.718 Personal history of other venous thrombosis and embolism
CPT/HCPCS: 36415; 51702; 70450; 71045; 72125; 80048; 80053; 80076; 81001; 83605; 83735; 84100; 84443; 85025; 85027; 85610; 86850; 86900; 86901; 86920; 86922; 87040; 87086; 93005; 97110; 97162; 97166; 99284; J7040; J7050; P9016; A4216; J2405